=== PATIENT | male | born 1950 | race Caucasian/White ===

== ENCOUNTER → 2017-10-18 | Outpatient (CLI) | payer BC ==
--- NOTE | 2017-10-18 18:01 | RAD ---
3 views left wrist 10/18/2017 Clinical indication: Left wrist pain status post fall. Comparison: None. Findings: There is a 4 mm ossific density dorsal to the carpus only seen on the lateral view. The joint spaces are maintained. The soft tissues are unremarkable. Distal radius and ulna are intact. Impression: 4 mm ossific density only seen on the lateral view dorsal to the carpus and may represent a triquetral fracture. If further evaluation is clinically indicated, CT could be performed.
== END | disposition home or self-care (01) ==
LOC: RAD 17:08
PROVIDERS: ATTEND General Practice
DX: S63.502A Unspecified sprain of left wrist, initial encounter (principal); W19.XXXA Unspecified fall, initial encounter; Y93.89 Activity, other specified; Y92.89 Other specified places as the place of occurrence of the external cause; Y99.8 Other external cause status
CPT/HCPCS: 73110

== ENCOUNTER → 2017-11-29 | Outpatient (CLI) | payer BC ==
--- NOTE | 2017-11-29 15:34 | RAD ---
Left wrist, 3 views, 11/29/2017: History: Pain, possible fracture Comparison is made to a study from 10/18/2017. A radiopaque cast is in place compromising bony detail. The small calcification seen along the posterior aspect of the carpal bones on the previous study is not clearly defined on today's exam. There is a benign-appearing cyst in the capitate bone. There are mild degenerative changes at the radiocarpal articulation. No new abnormality is detected.
== END | disposition home or self-care (01) ==
LOC: PMG 15:09
PROVIDERS: ATTEND Physician Assistant
DX: M25.532 Pain in left wrist (principal); M85.48 Solitary bone cyst, other site
CPT/HCPCS: 73110